=== PATIENT | female | born 1965 | race Caucasian/White ===

== ENCOUNTER 2016-03-24 12:39 | Emergency (ER) | payer OTHER ==
[~2016-03-24 12:39] MED LIST: Z.0.NO CURRENT MEDS
[2016-03-24 12:41] VITALS: BP 141/81; PULSE 103; RESP 16; TEMP 97.6; O2SAT 97
--- NOTE | 2016-03-24 13:05 | PD ---
HPI Chief Complaint: GI Complaint Time Seen by Provider: 13:05 Travel History International Travel<30 days: No Contact w/Intl Traveler<30days: No Traveled to known affect area: No History of Present Illness HPI 51-year-old female with no significant medical history, presents to the emergency department for evaluation of acute onset epigastric pain. It is sharp and stabbing. She states there is also some pain inferior to the umbilicus but primarily her pain is in the epigastrium. Patient cannot get comfortable. Any movement exacerbates this pain. Deep inspiration also makes it worse. Does not have associated nausea or vomiting. No recent illnesses, fever, or chills. Patient does not use illegal drugs or smoked tobacco cigarettes. Denies chest pain or shortness of breath. She has no other symptoms to report this time. [facility] Past Medical History Medical History: Denies Significant Hx Tubal Ligation: Yes Past Surgical History Section: Yes Social History Alcohol Use: No Tobacco Use: No Substance Use: No Allergies-Medications (Allergen,Severity, Reaction): Coded Allergies: No Known Allergies (Verified , 03/24/16) Reported Meds & Prescriptions Reported Meds & Active Scripts Active No Active Prescriptions or Reported Medications Review of Systems Except as stated in HPI: all other systems reviewed are Neg Physical Exam Narrative GENERAL: Well-nourished female patient, standing up with hands braced on the same, and mild distress secondary to pain SKIN: Warm and dry. HEAD: Atraumatic. Normocephalic. EYES: Pupils equal and round. No scleral icterus. No injection or drainage. ENT: No nasal bleeding or discharge. Mucous membranes pink and moist. NECK: Trachea midline. No JVD. CARDIOVASCULAR: Tachycardic rate and rhythm. No murmur appreciated. RESPIRATORY: No accessory muscle use. Clear to auscultation. Breath sounds equal bilaterally. GASTROINTESTINAL: Abdomen soft,, nondistended. Abdominal exam is limited due to patient's positioning however mild palpation in the mid epigastrium with my stethoscope elicits a sharp shooting pain. Hepatic and splenic margins not palpable. MUSCULOSKELETAL: No obvious deformities. No clubbing. No cyanosis. No edema. NEUROLOGICAL: Awake and alert. No obvious cranial nerve deficits. Motor grossly within normal limits. Normal speech. PSYCHIATRIC: Appropriate mood and affect; insight and judgment normal. Data Data Last Documented VS Vital Signs Date Time Temp Pulse Resp B/P Pulse Ox O2 Delivery O2 Flow Rate FiO2 03/24/16 12:41 97.6 103 16 141/81 97 Orders Complete Blood Count With Diff (03/24/16 13:04) Comprehensive Metabolic Panel (03/24/16 13:04) Lipase (03/24/16 13:04) Prothrombin Time / Inr (Pt) (03/24/16 13:04) Act Partial Throm Time (Ptt) (03/24/16 13:04) Urinalysis - C+S If Indicated (03/24/16 13:04) Electrocardiogram (03/24/16 13:04) Chest, Single Ap (03/24/16 13:04) Ed Poc Ultrasound (03/24/16 ) Troponin I (03/24/16 14:15) Ct Abd/Pel W Iv Contrast(Rout) (03/24/16 ) Iohexol 350 Inj (Omnipaque 350 Inj) (03/24/16 15:12) Us Abdomen Gallbladder (03/24/16 ) Labs Laboratory Tests Test 03/24/16 03/24/16 13:18 13:50 White Blood Count 7.3 TH/MM3 Red Blood Count 4.43 MIL/MM3 Hemoglobin 13.3 GM/DL Hematocrit 41.0 % Mean Corpuscular Volume 92.6 FL Mean Corpuscular Hemoglobin 30.0 PG Mean Corpuscular Hemoglobin 32.4 % Concent Red Cell Distribution Width 13.9 % Platelet Count 241 TH/MM3 Mean Platelet Volume 8.9 FL Neutrophils (%) (Auto) 74.1 % Lymphocytes (%) (Auto) 18.8 % Monocytes (%) (Auto) 6.0 % Eosinophils (%) (Auto) 0.8 % Basophils (%) (Auto) 0.3 % Neutrophils # (Auto) 5.4 TH/MM3 Lymphocytes # (Auto) 1.4 TH/MM3 Monocytes # (Auto) 0.4 TH/MM3 Eosinophils # (Auto) 0.1 TH/MM3 Basophils # (Auto) 0.0 TH/MM3 CBC Comment DIFF FINAL Differential Comment Prothrombin Time 11.5 SEC Prothromb Time International 1.0 RATIO Ratio Activated Partial 28.0 SEC Thromboplast Time Sodium Level 140 MEQ/L Potassium Level 3.6 MEQ/L Chloride Level 105 MEQ/L Carbon Dioxide Level 23.9 MEQ/L Anion Gap 11 MEQ/L Blood Urea Nitrogen 9 MG/DL Creatinine 0.77 MG/DL Estimat Glomerular Filtration 79 ML/MIN Rate Random Glucose 86 MG/DL Calcium Level 8.9 MG/DL Total Bilirubin 0.6 MG/DL Aspartate Amino Transf 17 U/L (AST/SGOT) Alanine Aminotransferase 17 U/L (ALT/SGPT) Alkaline Phosphatase 26 U/L Total Protein 7.4 GM/DL Albumin 4.5 GM/DL Lipase 115 U/L Urine Color LIGHT-YELLOW Urine Turbidity CLEAR Urine pH 7.0 Urine Specific [place] 1.007 Urine Protein NEG mg/dL Urine Glucose (UA) NEG mg/dL Urine Ketones 10 mg/dL Urine Occult Blood NEG Urine Nitrite NEG Urine Bilirubin NEG Urine Urobilinogen LESS THAN 2.0 MG/DL Urine Leukocyte Esterase NEG Urine WBC LESS THAN 1 /hpf Urine Hyaline Casts 1 /lpf Microscopic Urinalysis Comment CULT NOT INDICATED MDM Medical Decision Making Medical Screen Exam Complete: Yes Emergency Medical Condition: Yes Medical Record Reviewed: Yes Differential Diagnosis Gastritis versus ACS versus pancreatitis versus cholecystitis versus dissection Narrative Course 51 year-old female presents to the emergency department for evaluation. Workup was initiated in triage. Once a medical bed becomes available, patient will be transferred and care assumed by that provider. Scripts No Active Prescriptions or Reported Meds Condition: Stable Kelly Fitch Mar 24, 2016 13:05
[2016-03-24 13:37] LABS: AUTOMATED NEUTROPHIL # 5.4 TH/MM3 (1.8-7.7); BASOPHIL % 0.3 % (0.0-2.0); EOSINOPHIL # 0.1 TH/MM3 (0-0.4); EOSINOPHIL % 0.8 % (0.0-4.0); HEMO FLAGS DIFF FINAL; LYMPH % 18.8 % (9.0-44.0); LYMPHOCYTE # 1.4 TH/MM3 (1.0-4.8); MEAN CELL VOLUME 92.6 FL (80.0-100.0); MEAN CORPUSCULAR HGB CONC 32.4 % (32.0-36.0); NEUT % 74.1 % (16.0-70.0); PLATELET COUNT 241 TH/MM3 (150-450); RED BLOOD COUNT 4.43 MIL/MM3 (4.00-5.30); RED CELL DISTRIBUTION WIDTH 13.9 % (11.6-17.2); WHITE BLOOD COUNT 7.3 TH/MM3 (4.0-11.0)
[2016-03-24 13:42] LABS: PROTHROMBIN TIME - PATIENT 11.5 SEC (9.8-11.6)
--- NOTE | 2016-03-24 13:49 | RADRPT ---
EXAM DATE/TIME: 03/24/2016 13:17 [facility] COMPARISON: No previous studies available for comparison. INDICATIONS : Chest pain. MEDICAL HISTORY : None. SURGICAL HISTORY : None. ENCOUNTER: Initial ACUITY: 1 day PAIN SCORE: 10/10 LOCATION: Right lower chest FINDINGS: A single view of the chest demonstrates the lungs to be symmetrically aerated without evidence of mas s, infiltrate or effusion. The cardiomediastinal contours are unremarkable. Osseous structures are intact. CONCLUSION: Normal examination for a patient of this age. Jarad Vaca MD on March 24, 2016 at 13:47 Board Certified Radiologist. This report was verified electronically.
[2016-03-24 13:57] LABS: ANION GAP 11 MEQ/L (5-15); AST (GOT) 17 U/L (15-37); BICARBONATE 23.9 MEQ/L (21.0-32.0); BLOOD UREA NITROGEN 9 MG/DL (7-18); CHLORIDE 105 MEQ/L (98-107); GLOMERULAR FILTRATION RATE 79 ML/MIN (>89); POTASSIUM 3.6 MEQ/L (3.5-5.1); SODIUM (NA) 140 MEQ/L (136-145)
[2016-03-24 14:00] LABS: ALKALINE PHOSPHATASE 26 U/L (45-117); ALT (GPT) 17 U/L (10-53); TOTAL BILIRUBIN ADULT 0.6 MG/DL (0.2-1.0)
[2016-03-24 14:04] LABS: BLOOD, URINE NEG (NEG); GLUCOSE,URINE NEG (NEG); HYALINE CAST, URINE 1 /lpf (RARE); KETONE, URINE 10 mg/dL (NEG); NITRITE,URINE NEG (NEG); URINE COLOR LIGHT-YELLOW (YELLW/STRAW)
[2016-03-24 14:06] LABS: COMMENT (UR) CULT NOT INDICATED; CULTURE IF INDICATED CULT NOT INDICATED
--- NOTE | 2016-03-24 14:29 | PD ---
HPI Chief Complaint: GI Complaint Time Seen by Provider: 13:31 Travel History International Travel<30 days: No Contact w/Intl Traveler<30days: No Traveled to known affect area: No History of Present Illness HPI Assumed care of patient from [place]. 51-year-old woman, presents with fairly abrupt onset of epigastric right upper quadrant abdominal pain times today. She's never really had previous similar problems. She felt well and healthy before it started. She has difficulty getting comfortable, there is a lot of tenderness in the epigastrium, and the pain is worse with any kind of movement. Also worse with deep breathing. Denies any chest pain or shortness of breath. No nausea vomiting diarrhea or other symptoms. Only abdominal surgical history is a . History Past Medical History Medical History: Denies Significant Hx Tetanus Vaccination: Unknown Dilation and Curettage (D&C): Yes Social History Alcohol Use: Yes (OCC) Tobacco Use: No Allergies-Medications (Allergen,Severity, Reaction): Coded Allergies: No Known Allergies (Verified , 03/24/16) Reported Meds & Prescriptions Reported Meds & Active Scripts Active No Active Prescriptions or Reported Medications Review of Systems Except as stated in HPI: all other systems reviewed are Neg Physical Exam Narrative GENERAL: This is an uncomfortable appearing 51-year-old woman, nontoxic. SKIN: Warm and dry. CARDIOVASCULAR: Regular rate and rhythm. No murmur appreciated. RESPIRATORY: No accessory muscle use. Clear to auscultation. Breath sounds equal bilaterally. GASTROINTESTINAL: Abdomen is flat and soft. Moderate epigastric tenderness. Not much right upper quadrant tenderness. She does have radiation of some of her pain to the right upper quadrant. MUSCULOSKELETAL: No obvious deformities. No edema. NEUROLOGICAL: Awake and alert. No obvious cranial nerve deficits. Motor grossly within normal limits. Normal speech. PSYCHIATRIC: Appropriate mood and affect; insight and judgment normal. Data Data Last Documented VS Vital Signs Date Time Temp Pulse Resp B/P Pulse Ox O2 Delivery O2 Flow Rate FiO2 03/24/16 12:41 97.6 103 16 141/81 97 Orders Complete Blood Count With Diff (03/24/16 13:04) Comprehensive Metabolic Panel (03/24/16 13:04) Lipase (03/24/16 13:04) Prothrombin Time / Inr (Pt) (03/24/16 13:04) Act Partial Throm Time (Ptt) (03/24/16 13:04) Urinalysis - C+S If Indicated (03/24/16 13:04) Electrocardiogram (03/24/16 13:04) Chest, Single Ap (03/24/16 13:04) Ed Poc Ultrasound (03/24/16 ) Troponin I (03/24/16 14:15) Ct Abd/Pel W Iv Contrast(Rout) (03/24/16 ) Iohexol 350 Inj (Omnipaque 350 Inj) (03/24/16 15:12) Us Abdomen Gallbladder (03/24/16 ) Labs Laboratory Tests Test 03/24/16 03/24/16 13:18 13:50 White Blood Count 7.3 TH/MM3 Red Blood Count 4.43 MIL/MM3 Hemoglobin 13.3 GM/DL Hematocrit 41.0 % Mean Corpuscular Volume 92.6 FL Mean Corpuscular Hemoglobin 30.0 PG Mean Corpuscular Hemoglobin 32.4 % Concent Red Cell Distribution Width 13.9 % Platelet Count 241 TH/MM3 Mean Platelet Volume 8.9 FL Neutrophils (%) (Auto) 74.1 % Lymphocytes (%) (Auto) 18.8 % Monocytes (%) (Auto) 6.0 % Eosinophils (%) (Auto) 0.8 % Basophils (%) (Auto) 0.3 % Neutrophils # (Auto) 5.4 TH/MM3 Lymphocytes # (Auto) 1.4 TH/MM3 Monocytes # (Auto) 0.4 TH/MM3 Eosinophils # (Auto) 0.1 TH/MM3 Basophils # (Auto) 0.0 TH/MM3 CBC Comment DIFF FINAL Differential Comment Prothrombin Time 11.5 SEC Prothromb Time International 1.0 RATIO Ratio Activated Partial 28.0 SEC Thromboplast Time Sodium Level 140 MEQ/L Potassium Level 3.6 MEQ/L Chloride Level 105 MEQ/L Carbon Dioxide Level 23.9 MEQ/L Anion Gap 11 MEQ/L Blood Urea Nitrogen 9 MG/DL Creatinine 0.77 MG/DL Estimat Glomerular Filtration 79 ML/MIN Rate Random Glucose 86 MG/DL Calcium Level 8.9 MG/DL Total Bilirubin 0.6 MG/DL Aspartate Amino Transf 17 U/L (AST/SGOT) Alanine Aminotransferase 17 U/L (ALT/SGPT) Alkaline Phosphatase 26 U/L Total Protein 7.4 GM/DL Albumin 4.5 GM/DL Lipase 115 U/L Urine Color LIGHT-YELLOW Urine Turbidity CLEAR Urine pH 7.0 Urine Specific [place] 1.007 Urine Protein NEG mg/dL Urine Glucose (UA) NEG mg/dL Urine Ketones 10 mg/dL Urine Occult Blood NEG Urine Nitrite NEG Urine Bilirubin NEG Urine Urobilinogen LESS THAN 2.0 MG/DL Urine Leukocyte Esterase NEG Urine WBC LESS THAN 1 /hpf Urine Hyaline Casts 1 /lpf Microscopic Urinalysis Comment CULT NOT INDICATED MDM Medical Decision Making Medical Screen Exam Complete: Yes Emergency Medical Condition: Yes Interpretation(s) My review of EKG: Normal sinus rhythm at a rate of 69, normal axis, normal intervals, no ischemia. LABS: CBC unremarkable. CMP unremarkable. Lipase normal. Coags unremarkable UA unremarkable Abdomen pelvis CT: Negative. Looks well appendix without inflammation. Right upper quadrant ultrasound: Negative for cholelithiasis. 3 mm nonobstructing right renal stone. Differential Diagnosis Gastritis, cholecystitis, cholangitis, peptic ulcer disease, AAA, other Narrative Course Medical decision making 51-year-old woman presents emergency department with a fairly abrupt onset of epigastric abdominal pain. Some right upper quadrant tenderness. Tempted bedside ultrasound but had limited views of the gallbladder. No gallstones were seen. No tenderness over the gallbladder. No obvious gallbladder wall thickening or pericholecystic fluid. Labs are unrevealing. We'll check CT the abdomen and pelvis. We'll add a troponin. No evidence of pericarditis. Diagnosis Primary Impression: Right upper quadrant pain Additional Impression: Renal lithiasis Additional Instructions: Follow-up with your primary doctor for not completely well in 2-4 days. Return to the emergency department for any new or worsening symptoms. Med/Other Pt SpecificInfo: No Change to Meds Scripts No Active Prescriptions or Reported Meds Disposition: 01 DISCHARGE HOME Condition: Stable Flakito De La Torre MD Mar 24, 2016 14:29
[2016-03-24] MEDS ORDERED: IOHEXOL 350 MG/ML 10 ML VIAL (for RAD DIAG) IV ONE (15:12)
--- NOTE | 2016-03-24 15:14 | RADRPT ---
EXAM DATE/TIME: 03/24/2016 14:48 [facility] COMPARISON: No previous studies available for comparison. INDICATIONS : Right upper quadrant pain starting today. IV CONTRAST: 67 cc Omnipaque 350 (iohexol) IV ORAL CONTRAST: No oral contrast ingested. RADIATION DOSE: 6.06 CTDIvol (mGy) MEDICAL HISTORY : None SURGICAL HISTORY : section. Tubal ligation. ENCOUNTER: Initial ACUITY: 1 day PAIN SCALE: 7/10 LOCATION: Right upper quadrant Abdomen TECHNIQUE: Volumetric scanning of the abdomen and pelvis was performed. Using automated exposure control and ad justment of the mA and/or kV according to patient size, radiation dose was kept as low as reasonably achievable to obtain optimal diagnostic quality images. FINDINGS: LOWER LUNGS: The visualized lower lungs are clear. LIVER: Homogeneous density without lesion. There is no dilation of the biliary tree. No calcified gallston es. SPLEEN: Normal size without lesion. PANCREAS: Within normal limits. KIDNEYS: Normal in size and shape. There is no mass, stone or hydronephrosis. Extrarenal pelvis on the right ADRENAL GLANDS: Within normal limits. VASCULAR: There is no aortic aneurysm. BOWEL/MESENTERY: The stomach, small bowel, and colon demonstrate no acute abnormality. There is no free intraperitone al air or fluid. The appendix is identified between the cecum and the inferior aspect of the right ki dney. The appendix is fluid-filled but I do not see wall thickening or any surrounding inflammation t o suggest appendicitis ABDOMINAL WALL: Within normal limits. RETROPERITONEUM: There is no lymphadenopathy. BLADDER: No wall thickening or mass. REPRODUCTIVE: Within normal limits. 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 MUSCULOSKELETAL: Within normal limits for patient age. CONCLUSION: No etiology for right upper quadrant pain is identified. The appendix is between the right kidney an d the cecum. Fluid-filled but I don't see wall thickening or definite periappendiceal stranding to alarcon ggest appendicitis. No free fluid or mass is identified Flakito Campos MD on March 24, 2016 at 15:10 Board Certified Radiologist. This report was verified electronically.
--- NOTE | 2016-03-24 16:34 | RADRPT ---
EXAM DATE/TIME: 03/24/2016 15:53 [facility] COMPARISON: No previous studies available for comparison. INDICATIONS : Right upper quandrant pain. MEDICAL HISTORY : . Right upper quadrant pain. SURGICAL HISTORY : Tubal ligation. section. Tonsillectomy. Breast augmentation. Dilation and Curettage. ENCOUNTER: Initial ACUITY: 1 day PAIN SCORE: 1/10 LOCATION: Right upper quadrant MEASUREMENTS: LIVER: 13.9 cm length COMMON DUCT: 4 mm RIGHT KIDNEY: 11.7 x 5.1 x 4.4 cm FINDINGS: The gallbladder and visualized portion of the pancreas are unremarkable. The liver is normal in size and free of focal defects. There is a single stone within the right kidney without hydronephrosis shena suring 3 mm in the midpole. CONCLUSION: 1. No evidence of cholelithiasis. 2. 3 mm nonobstructing right renal stone Jorge Luis Yoo MD on March 24, 2016 at 16:31 Board Certified Radiologist. This report was verified electronically.
--- NOTE | 2016-03-25 15:45 | EKG ---
Date Performed: 03/24/2016 Time Performed: 14:20:05 PTAGE: 51 years EKG: Sinus rhythm BORDERLINE RIGHT AXIS DEVIATION BORDERLINE ECG NO PREVIOUS TRACING DOCTOR: Nj Reyes Interpretating Date/Time 03/25/2016 15:41:31
== END 2016-03-24 17:35 | disposition home or self-care (01) ==
LOC: NEPA 12:39
DX: R10.11 Right upper quadrant pain (principal); N20.0 Calculus of kidney; R94.31 Abnormal electrocardiogram [ECG] [EKG]
CPT/HCPCS: 71010; 74177; 76705; 80053; 81001; 83690; 84484; 85025; 85610; 85730; 93005; 99285; Q9967